=== PATIENT | female | born 1940 | race Caucasian/White ===

== ENCOUNTER → 2017-06-17 | Outpatient (CLI) | payer MEDICARE, OTHER ==
--- NOTE | ~2017-06-17 | MY29 ---
[facility] A Service of [facility] RADIOLOGY TEXT RESULTS PATIENT: ALEXIA ATKINSON LOCATION: [facility] : 36 UNIT #: [id number] AGE: [address]: Sen Garcia MD SEX: F ORDER DR: [id number] [facility] [address] [place], [place] [address] [id number] O MR#: [id number] Acc #: [id number] NAME: ALEXIA ATKINSON : 1940 SEX: F STUDY DATE/TIME: 06/17/2017 11:35 UNIT: [facility] ROOM: STUDY DESCRIPTION: MY VALENTE SCREENING W/ CAD BILAT Attending Physician: Sen Garcia M.D. Ordering Physician: Ivone Olmstead M.D. Primary Care Physician: Sen Garcia M.D. MEDICAL IMAGING REPORT This report is preliminary unless electronic signature is present EXAM Digital screening mammogram, 06/17/2017 HISTORY 77-year-old woman previous left lumpectomy 1999. Annual screening. COMPARISON Mammograms date to 12/09/2006 with most recent 05/07/2016. FINDINGS Digital imaging of each breast was completed utilizing screening protocol. Review includes FDA-approved CAD device. Breast parenchyma is partially fatty replaced. Subareolar duct prominence and nodular opacity right breast is stable. Post lumpectomy findings left breast are considerable and stable. I see no interval occurring mass. There are no suspicious microcalcifications and no architectural deformity. IMPRESSION Benign mammogram. Stable post lumpectomy findings left breast. Annual screening recommended. Patients over the age of 40 are entered into a reminder system with target due date for the next mammogram. A result letter will also be sent to the patient. BIRADS: 2 Benign Finding Dictated by... Serge Zheng M.D. THIS IS AN ELECTRONICALLY VERIFIED REPORT Serge Zheng M.D. at 06/19/2017 1:44 PM MARIYA/deisy [facility] A Service of [facility] RADIOLOGY TEXT RESULTS PATIENT: [facility]LEX[facility]INSON [id number] UNIT #: [id number] AGE: [address]: Sen Garcia MD SEX: F ORDER DR: TD: 06/17/2017 15:31 JOB #: [id number] MEDICAL IMAGING REPORT Page 1 of 1 COPY
== END | disposition home or self-care (01) ==
LOC: CWCC 10:46
DX: Z12.31 Encounter for screening mammogram for malignant neoplasm of breast (principal); Z98.890 Other specified postprocedural states
CPT/HCPCS: G0202